=== PATIENT | female | born 1960 | race Caucasian/White ===

== ENCOUNTER 2016-12-21 11:40 | Emergency (ER) | payer OTHER ==
[~2016-12-21] VITALS: Ht 152.4 cm; Wt 114.5 kg
[2016-12-21 12:11] LABS: POINT-OF-CARE METER ID UU13113778
[2016-12-21 13:16] LABS: HEMATOCRIT 37.8 % (36.0-46.0); MCV 71.2 FL (83-99); MEAN PLAT.VOLUME 11.3 uM^3 (9.5-12.4); PLATELET COUNT 320 K/uL (156-360); RBC DIS.WIDTH-CV 17.9 % (11.8-14.6); RBC DIS.WIDTH-SD 44.5 % (39-53); RED BLOOD COUNT 5.31 M/uL (3.80-5.20); WHITE BLOOD COUNT 14.3 K/uL (4.1-10.2)
[2016-12-21 13:17] LABS: CHLORIDE 101 mEq/L (99-109); POTASSIUM 4.3 mEq/L (3.7-5.4); SODIUM 135 mEq/L (136-147)
[2016-12-21 13:18] LABS: GLUCOSE 373 mg/dL (70-99)
[2016-12-21 13:20] LABS: ANION GAP 13 MEQ/L (2-14)
[2016-12-21 13:23] LABS: GFR ESTIMATE (CALCULATED) > 59 mL/min/; UREA NITROGEN (BUN) 21 mg/dL (9-23)
[2016-12-21 13:27] LABS: ADD MIUA? YES; BILIRUBIN NEGATIVE; BLOOD LARGE; COLOR YELLOW ((YELLOW)); GLUCOSE (STRIP) >=500; KETONES 20; LEUKOCYTES NEGATIVE; NITRITE NEGATIVE; PROTEIN (STRIP) 30; SPECIFIC GRAVITY 1.028 (1.000-1.030); UROBILINOGEN 0.2 MG/DL (0.2-1.0)
[2016-12-21 13:32] LABS: BACTERIA NONE SEEN /HPF; EPITHELIAL CELLS RARE /HPF; MUCUS NONE SEEN /LPF; RED BLOOD CELLS 0-5 /HPF (0-5); UCUL ADDED? NO; WHITE BLOOD CELLS 0-5 /HPF (0-5)
[2016-12-21] MEDS ORDERED: GLUCOPHAGE XR750 MG PO (14:30)
[2016-12-21] MEDS ORDERED: GLUCOTROL10 MG PO (14:32)
[2016-12-21] MEDS ORDERED: GLIPIZIDE10 MG PO (15:33)
[2016-12-21 15:48] LABS: POINT-OF-CARE METER ID UU14100415
[2016-12-21 15:49] VITALS: BP 156/72
== END 2016-12-21 16:02 | disposition home or self-care (01) ==
LOC: EME 11:40
PROVIDERS: Emergency Medicine
DX: E11.65 Type 2 diabetes mellitus with hyperglycemia (principal); R42 Dizziness and giddiness; T38.3X6A Underdosing of insulin and oral hypoglycemic [antidiabetic] drugs, initial encounter; Z91.128 Patient's intentional underdosing of medication regimen for other reason
CPT/HCPCS: 71020; 80048; 81003; 82948; 85027; 93005; 99281; 99285; J7030